=== PATIENT | female | born 1950 | race Caucasian/White ===

== ENCOUNTER 2019-08-07 09:38 | Emergency (ER) | payer MEDICARE ==
--- NOTE | 2019-08-07 10:15 | ER Document Report ---
ED Medical Screen (RME) - General Chief Complaint: Abdominal Pain Stated Complaint: ABDOMINAL PAIN Time Seen by Provider: 08/07/19 10:10 Mode of Arrival: Ambulatory Information source: Patient Notes: 69-year-old female presented to ED for complaint of nausea vomiting diarrhea and stomach pain. She states she does not feel good. She states she has a history of gallbladder problems diverticulosis and stomach pains chronic cystitis. She states that she has not felt very good in the last 3 days and due to the vomiting has not been taking to take her normal medicines because of the nausea vomiting and diarrhea. He states she does not smoke drink or use any drugs. She is alert oriented respirations regular and unlabored and speaking in full sentences. I have greeted and performed a rapid initial assessment of this patient. A comprehensive ED assessment and evaluation of the patient, analysis of test results and completion of medical decision making process will be conducted by an additional ED providers. Physical Exam - Vital signs Vitals: Temp Pulse Resp BP Pulse Ox 97.5 F 118 H 18 96/75 L 96 08/07/19 09:47 08/07/19 09:47 08/07/19 09:47 08/07/19 09:47 08/07/19 09:47 Course - Vital Signs Vital signs: Temp Pulse Resp BP Pulse Ox 97.5 F 118 H 18 96/75 L 96 08/07/19 09:47 08/07/19 09:47 08/07/19 09:47 08/07/19 09:47 08/07/19 09:47
[2019-08-07] MEDS ORDERED: NORMAL SALINE 1000 ML 1,000 ML IV ONE (10:17)
[2019-08-07] MEDS ORDERED: ONDANSETRON 4 MG TAB.RAPDIS PO ONE (10:17)
--- NOTE | 2019-08-07 10:42 | RADIOLOGY REPORT (SQ) ---
EXAM DESCRIPTION: CHEST SINGLE VIEW IMAGES COMPLETED DATE/TIME: 08/07/2019 10:34 am REASON FOR STUDY: #1 SYNCOPE COMPARISON: None. EXAM PARAMETERS: NUMBER OF VIEWS: One view. TECHNIQUE: Single frontal radiographic view of the chest acquired. RADIATION DOSE: NA LIMITATIONS: None. FINDINGS: LUNGS AND PLEURA: No opacities, masses or pneumothorax. No pleural effusion. MEDIASTINUM AND HILAR STRUCTURES: No masses. Contour normal. HEART AND VASCULAR STRUCTURES: Heart normal in size. Normal vasculature. BONES: No acute findings. HARDWARE: None in the chest. OTHER: No other significant finding. IMPRESSION: NO ACUTE RADIOGRAPHIC FINDING IN THE CHEST. TECHNICAL DOCUMENTATION: JOB ID: [id number] 2010 [employer]- All Rights Reserved Reading location - IP/workstation name: [email or web address]
[2019-08-07 11:36] LABS: ABSOLUTE EOSINOPHILS # (AUTO) 0.1 10^3/uL (0.0-0.6); ABSOLUTE LYMPHOCYTES (AUTO) 1.3 10^3/uL (0.5-4.7); ABSOLUTE MONOCYTES (AUTO) 0.9 10^3/uL (0.1-1.4); ABSOLUTE NEUT (AUTO) 6.4 10^3/uL (1.7-8.2); BASOPHILS % (AUTO) 0.5 % (0-2); EOSINOPHILS % (AUTO) 0.8 % (0-6); HEMATOCRIT 44.8 % (36.0-47.0); HEMOGLOBIN 15.3 g/dL (12.0-15.5); LYMPHOCYTES % (AUTO) 14.8 % (13-45); MEAN CORPUSCULAR HEMOGLOBIN 29.8 pg (27.0-33.4); MEAN CORPUSCULAR HGB CONC 34.1 g/dL (32.0-36.0); MEAN CORPUSCULAR VOLUME 87 fl (80-97); MONOCYTES % (AUTO) 10.4 % (3-13); PLATELET COUNT 289 10^3/uL (150-450); RED BLOOD COUNT 5.12 10^6/uL (3.72-5.28); RED CELL DISTRIBUTION WIDTH 14.1 % (11.5-14.0); SEGMENTED NEUTROPHILS % (AUTO) 73.5 % (42-78); TOTAL CELLS COUNTED % (AUTO) 100 %; WHITE BLOOD COUNT 8.7 10^3/uL (4.0-10.5)
[2019-08-07] MEDS ORDERED: RINGERS SOLUTION,LACTATED 1,000 ML IV ONE ×2 (11:39→12:56)
--- NOTE | 2019-08-07 11:51 | ER Document Report ---
ED General - General Chief Complaint: Abdominal Pain Stated Complaint: ABDOMINAL PAIN Time Seen by Provider: 08/07/19 10:10 Primary Care Provider: TY NGUYEN PA-C [Primary Care Provider] - Follow up as needed SHAUN WEBSTER MD [ACTIVE STAFF] - Follow up as needed Mode of Arrival: Ambulatory Notes: 69-year-old female presents emergency department complaining of 1 to 2-week history of decreased oral intake, right upper quadrant pain associated with nausea and vomiting that worsens when she eats sardine in oil. Patient states that this does not get any better when she tries Gas-X or Carline-[place]mit. Patient states that for the past week she has not been able to tolerate anything by m outh with exception of water. Yesterday she tried to eat a small amount of soup and threw back up. Patient states this morning she vomited when she just ate water. Complains of sweats but denies fevers. Admits to diarrhea and a small amount of blood in her stool, states there is only 1 or 2 drops and a small amount of blood when she wipes with toilet paper. Patient notes she has been told in the past that she has decreased functioning of her gallbladder by her physician in [place]. Patient also has a history of diverticulitis and chronic cystitis. Patient states she did have somewhat similar symptoms approximately 1 month ago that were treated by ciprofloxacin and a vaginal cream that her primary care physician called in over the phone and her symptoms did improve. - Related Data Allergies/Adverse Reactions: No Known Allergies Allergy (Verified 08/07/19 10:17) Past Medical History - General Information source: Patient - Social History Smoking Status: Former Smoker Frequency of alcohol use: None Drug Abuse: None Family History: Hypertension Patient has homicidal ideation: No Review of Systems - Review of Systems Constitutional: See HPI, Diaphoresis, Malaise, Weakness, Weight loss - 9 pounds over the past week.. denies: Chills, Fever EENT: No symptoms reported Cardiovascular: No symptoms reported Respiratory: No symptoms reported Gastrointestinal: See HPI, Abdominal pain, Diarrhea, Nausea, Vomiting, Rectal bleeding Genitourinary: No symptoms reported. denies: Burning, Dysuria, Discharge Musculoskeletal: Muscle pain - Some diffuse muscle aches. Skin: No symptoms reported Neurological/Psychological: No symptoms reported -: Yes All other systems reviewed and negative Physical Exam - Vital signs Vitals: Temp Pulse Resp BP Pulse Ox 97.5 F 118 H 18 96/75 L 96 08/07/19 09:47 08/07/19 09:47 08/07/19 09:47 08/07/19 09:47 08/07/19 09:47 Interpretation: Hypotensive, Tachycardic - Notes Notes: GENERAL: Alert, interacts well. No acute distress. HEAD: Normocephalic, atraumatic EYES: Pupils equal, round and reactive to light, extraocular movements intact. ENT: Oral mucosa moist, tongue midline. NECK: Full range of motion, supple, trachea midline. LUNGS: Clear to auscultation bilaterally, no wheezes, rales or rhonchi, no respiratory distress. HEART: Tachycardic rate and regular rhythm, no murmurs, gallops, rubs. ABDOMEN: Soft, mild right upper quadrant, right lower quadrant and left lower quadrant tenderness to palpation without any guarding, rigidity or rebounding, nondistended, bowel sounds present in all 4 quadrants. EXTREMITIES: Moves all 4 extremities spontaneously, no edema, radial and dorsalis pedis pulses 2/4 bilaterally. No cyanosis. NEUROLOGICAL: Alert and oriented x3, normal speech. PSYCH: Normal mood, normal affect. SKIN: Warm, Dry, normal turgor, no rashes or lesions noted. Course - Re-evaluation Re-evalutation: 08/07/19 15:53 CBC unremarkable, CMP shows slight low sodium 136.2, CO2 low at 13, BUN of 41 and creatinine 1.87 also support dehydration, glucose elevated at 141, troponin negative, lipase normal, total and direct bilirubin normal as are liver function tests, ultrasound of the gallbladder shows biliary sludge without signs of infection, CAT scan of the abdomen pelvis also does not show any diverticulitis or signs of infection. Chest x-ray unremarkable. Discussed patient with Dr. Webster who states that as long as the patient's symptoms can be controlled with antiemetics and she is able to tolerate nonfatty foods patient can follow-up as an outpatient for possible outpatient cholecystectomy for symptomatic biliary colic from biliary sludge. Patient is agreeable to this plan as well. 08/07/19 15:57 Urinalysis shows elevated specific gravity, ketones, moderate blood and large leukocyte esterase, only 13 RBCs. Unlikely to be an infected obstructing stone, also stone was not seen on CT scan. This will be sent for culture. Patient w ill be treated with Keflex. Discharged home. 08/07/19 16:50 Tolerated ice chips and crackers well. Discharged home. - Vital Signs Vital signs: Temp Pulse Resp BP Pulse Ox 97.5 F 118 H 20 106/72 93 08/07/19 10:10 08/07/19 09:47 08/07/19 15:00 08/07/19 14:47 08/07/19 15:00 - Laboratory Result Diagrams: 08/07/19 11:15 08/07/19 11:15 Laboratory results interpreted by me: 08/07/19 08/07/19 08/07/19 11:15 11:15 14:30 RDW 14.1 H Sodium 136.2 L Carbon Dioxide 13 L BUN 41 H Creatinine 1.87 H Est GFR ( Amer) 32 L Est GFR (MDRD) Non-Af 27 L Glucose 141 H Urine Protein 30 H Urine Ketones TRACE H Urine Blood MODERATE H Ur Leukocyte Esterase LARGE H Discharge - Discharge Clinical Impression: Biliary colic, Biliary sludge, Nausea vomiting and diarrhea Urinary tract infection Qualifiers: Urinary tract infection type: acute cystitis Hematuria presence: with hematuria Qualified Code(s): N30.01 - Acute cystitis with hematuria Condition: Stable Disposition: HOME, SELF-CARE Additional Instructions: Please avoid fatty and greasy foods, this will make your gallbladder pain worse. Follow a low-fat diet. If despite following a low-fat diet you continue to have nausea and vomiting anytime you eat or pain in your abdomen anytime you eat please consider following up with a surgeon as an outpatient to discuss possibly having your gallbladder removed because of the biliary sludge. I have prescribed Zofran ODT 4 mg to help with nausea and vomiting. You may take 1 tablet every 4 hours as needed for nausea and vomiting. Should you have persistent constant vomiting and you cannot keep down any food or water please return to the emergency department. Please take the Keflex as directed until it is gone for your urinary tract infection. Prescriptions: Cephalexin Monohydrate [Keflex 250 mg Capsule] 250 mg PO BID #10 capsule Ondansetron [Zofran Odt 4 mg Tablet] 1 tab PO Q4H PRN #15 tab.rapdis PRN Reason: For Nausea/Vomiting Referrals: TY NGUYEN PA-C [Primary Care Provider] - Follow up as needed SHAUN WEBSTER MD [ACTIVE STAFF] - Follow up as needed
[2019-08-07 11:54] LABS: ALBUMIN 3.9 g/dL (3.5-5.0); ALKALINE PHOSPHATASE 101 U/L (38-126); ANION GAP 19 (5-19); ASPARTATE AMINO TRANSFERASE 35 U/L (14-36); BILIRUBIN,DIRECT 0.1 mg/dL (0.0-0.4); BILIRUBIN,TOTAL 0.5 mg/dL (0.2-1.3); BLOOD UREA NITROGEN 41 mg/dL (7-20); CALCIUM 9.7 mg/dL (8.4-10.2); CARBON DIOXIDE 13 mmol/L (22-30); CHLORIDE 104 mmol/L (98-107); GLUCOSE 141 mg/dL (75-110); POTASSIUM 3.9 mmol/L (3.6-5.0); TOTAL PROTEIN 7.4 g/dL (6.3-8.2)
--- NOTE | 2019-08-07 12:52 | RADIOLOGY REPORT (SQ) ---
EXAM DESCRIPTION: U/S ABDOMEN LIMITED W/O DOP IMAGES COMPLETED DATE/TIME: 08/07/2019 12:36 pm REASON FOR STUDY: RUQ pain, N/V/D, h/o GB disease COMPARISON: None. TECHNIQUE: Dynamic and static grayscale images acquired of the abdomen and recorded on PACS. Additio nal selected color Doppler and spectral images recorded. LIMITATIONS: None. FINDINGS: PANCREAS: No masses. No peripancreatic edema or fluid collections. LIVER: Echotexture is coarse with increased echogenicity consistent with fatty infiltration. LIVER VASCULATURE: Normal directional flow of the main portal vein and hepatic veins. GALLBLADDER: Sludge present. No stones. Normal wall thickness. No pericholecystic fluid. ULTRASOUND-DETECTED BLEDSOE'S SIGN: Negative. INTRAHEPATIC DUCTS AND COMMON DUCT: CBD and intrahepatic ducts normal caliber. No filling defects. INFERIOR VENA CAVA: Normal flow. AORTA: No aneurysm. RIGHT KIDNEY: Normal size. Normal echogenicity. No solid or suspicious masses. No hydronephros is. No calcifications. PERITONEAL AND RIGHT PLEURAL SPACE: No ascites or effusions. OTHER: No other significant finding. IMPRESSION: SLUDGE IN THE GALLBLADDER. FATTY INFILTRATION OF THE LIVER. NO OTHER SIGNIFICANT FINDI NGS. TECHNICAL DOCUMENTATION: JOB ID: [id number] 2010 [employer]- All Rights Reserved Reading location - IP/workstation name: [email or web address]
--- NOTE | 2019-08-07 14:35 | RADIOLOGY REPORT (SQ) ---
EXAM DESCRIPTION: CT ABD/PELVIS WITH IV ONLY IMAGES COMPLETED DATE/TIME: 08/07/2019 2:16 pm REASON FOR STUDY: RLQ and LLQ pain, h/o diverticulitis, N/V/D COMPARISON: None. TECHNIQUE: CT scan of the abdomen and pelvis performed using helical scanning technique with dynamic intravenous contrast injection. No oral contrast. Images reviewed with lung, soft tissue, and bone windows. Reconstructed coronal and sagittal MPR images reviewed. Delayed images for evaluation of the urinary system also acquired. All images stored on PACS. All CT scanners at this facility use dose modulation, iterative reconstruction, and/or weight based d osing when appropriate to reduce radiation dose to as low as reasonably achievable (ALARA). [facility]: Dose Right [facility]: CareDose [facility]: Dose Right [facility]: Teradose 4D [facility]: Starline CONTRAST TYPE AND DOSE: contrast/concentration: Isovue 300.00 mg/ml; Total Contrast Delivered: 64.4 ml; Total Saline Delivered: 15.0 ml RENAL FUNCTION: BUN 41 creatinine 1.87 ordering physician assured that the patient would be given ad equate hydration RADIATION DOSE: CT Rad equipment meets quality standard of care and radiation dose reduction techniq ues were employed. CTDIvol: 6.8 - 9.4 mGy. DLP: 1135 mGy-cm.. LIMITATIONS: None. FINDINGS: LOWER CHEST: No significant findings. No nodules or infiltrates. LIVER: Normal size. No masses. No dilated ducts. SPLEEN: Normal size. No focal lesions. PANCREAS: No masses. No significant calcifications. No adjacent inflammation or peripancreatic fluid collections. Pancreatic duct not dilated. GALLBLADDER: No identified stones by CT criteria. No inflammatory changes to suggest cholecystitis. ADRENAL GLANDS: No significant masses or asymmetry. RIGHT KIDNEY AND URETER: No solid masses. No significant calcifications. No hydronephrosis or hyd roureter. LEFT KIDNEY AND URETER: No solid masses. No significant calcifications. Mild hydronephrosis. No significant ureteral dilatation. No obstructing calculus. AORTA AND VESSELS: No aneurysm. No dissection. Renal arteries, SMA, celiac without stenosis. RETROPERITONEUM: No retroperitoneal adenopathy, hemorrhage or masses. BOWEL AND PERITONEAL CAVITY: Minimal sigmoid diverticulosis. No associated inflammation. APPENDIX: Not identified. PELVIS: No mass. No free fluid. Normal bladder. ABDOMINAL WALL: No masses. No hernias. BONES: No significant or acute findings. OTHER: No other significant finding. IMPRESSION: Mild left hydronephrosis with no obvious source of obstruction. Possible chronic UPJ na rrowing. Minimal sigmoid diverticulosis with no associated inflammation. No other significant findi ngs in the abdomen or pelvis. TECHNICAL DOCUMENTATION: JOB ID: [id number] Quality ID # [id number]: Final reports with documentation of one or more dose reduction techniques (e.g., Au tomated exposure control, adjustment of the mA and/or kV according to patient size, use of iterative reconstruction technique) 2010 [employer]- All Rights Reserved Reading location - IP/workstation name: [email or web address]
[2019-08-07 15:45] VITALS: BP 106/72
[2019-08-07 15:50] LABS: APPEARANCE,URINE CLOUDY; BILIRUBIN,URINE NEGATIVE (NEGATIVE); COLOR,URINE YELLOW; GLUCOSE, URINE NEGATIVE (NEGATIVE); KETONES,URINE TRACE mg/dL (NEGATIVE); LEUKOCYTE ESTERASE,URINE LARGE (NEGATIVE); NITRITE,URINE NEGATIVE (NEGATIVE); PROTEIN,URINE 30 mg/dL (NEGATIVE); URINE SPECIFIC GRAVITY 1.044; UROBILINOGEN,URINE NEGATIVE mg/dL (<2.0)
[2019-08-07] MEDS ORDERED: ONDANSETRON HCL INJ/PF 4 MG/2 ML SDV IV ONE (15:56)
[2019-08-07] MEDS ORDERED: CEPHALEXIN 500 MG CAPSULE PO ONE (16:47)
== END 2019-08-07 16:10 | disposition home or self-care (01) ==
LOC: ER 09:38
DX: K80.50 Calculus of bile duct without cholangitis or cholecystitis without obstruction (principal); N30.01 Acute cystitis with hematuria; K82.8 Other specified diseases of gallbladder; R10.12 Left upper quadrant pain; R11.2 Nausea with vomiting, unspecified; R19.7 Diarrhea, unspecified; R61 Generalized hyperhidrosis; R53.81 Other malaise; R53.1 Weakness; R63.4 Abnormal weight loss; K62.5 Hemorrhage of anus and rectum; M79.10 Myalgia, unspecified site; R00.0 Tachycardia, unspecified; R10.811 Right upper quadrant abdominal tenderness; R10.813 Right lower quadrant abdominal tenderness; R10.814 Left lower quadrant abdominal tenderness; Z87.19 Personal history of other diseases of the digestive system; Z87.891 Personal history of nicotine dependence
CPT/HCPCS: 99284; 96361; 96374; 36415; 87086; 83690; 85025; 87088; 80053; 81001; 84484; 87186; 71045; 76705; 74177; A9270 ×2; J2405; J7120; S0119

== ENCOUNTER 2019-09-10 12:53 | Emergency (ER) | payer MEDICARE ==
--- NOTE | 2019-09-10 14:03 | ER Document Report ---
ED Medical Screen (RME) - General Chief Complaint: Abdominal Pain Stated Complaint: LOWER BACK/ABDOMINAL PAIN/PAINFUL URINATION Time Seen by Provider: 09/10/19 13:57 Primary Care Provider: TY NGUYEN PA-C [Primary Care Provider] - Follow up as needed Mode of Arrival: Ambulatory Information source: Patient Notes: Patient presents complaining of urinary frequency, low back pain and lower abdominal pain for the past week. Patient denies any nausea vomiting or diarrhea. Patient denies any fever. Patient does have a history of IBS, cystitis and diverticulitis. I have greeted and performed a rapid initial assessment of this patient. A comprehensive ED assessment and evaluation of the patient, analysis of test results and completion of the medical decision making process will be conducted by additional ED providers. - Related Data Allergies/Adverse Reactions: No Known Allergies Allergy (Verified 09/10/19 13:57) Past Medical History - Social History Chew tobacco use (# tins/day): No Frequency of alcohol use: None Drug Abuse: None Physical Exam - Vital signs Vitals: Temp Pulse Resp BP Pulse Ox 97.8 F 94 16 147/74 H 97 09/10/19 13:12 09/10/19 13:12 09/10/19 13:12 09/10/19 13:12 09/10/19 13:12 - Abdominal Tenderness: Tender - Lower pelvic tenderness - Back Back: Tender - Lower lumbar tenderness. No: CVA tenderness Course - Vital Signs Vital signs: Temp Pulse Resp BP Pulse Ox 97.8 F 94 16 147/74 H 97 09/10/19 13:12 09/10/19 13:12 09/10/19 13:12 09/10/19 13:12 09/10/19 13:12 Doctor's Discharge - Discharge Referrals: TY NGUYEN PA-C [Primary Care Provider] - Follow up as needed
[2019-09-10 14:32] LABS: APPEARANCE,URINE CLOUDY; BILIRUBIN,URINE NEGATIVE (NEGATIVE); COLOR,URINE YELLOW; GLUCOSE, URINE NEGATIVE (NEGATIVE); KETONES,URINE NEGATIVE (NEGATIVE); LEUKOCYTE ESTERASE,URINE LARGE (NEGATIVE); NITRITE,URINE NEGATIVE (NEGATIVE); PROTEIN,URINE 30 mg/dL (NEGATIVE); URINE SPECIFIC GRAVITY 1.018; UROBILINOGEN,URINE NEGATIVE mg/dL (<2.0)
[2019-09-10 14:33] LABS: ABSOLUTE BASOPHILS # (AUTO) 0.1 10^3/uL (0.0-0.2); ABSOLUTE EOSINOPHILS # (AUTO) 0.3 10^3/uL (0.0-0.6); ABSOLUTE LYMPHOCYTES (AUTO) 1.7 10^3/uL (0.5-4.7); ABSOLUTE MONOCYTES (AUTO) 0.5 10^3/uL (0.1-1.4); ABSOLUTE NEUT (AUTO) 5.3 10^3/uL (1.7-8.2); BASOPHILS % (AUTO) 0.7 % (0-2); EOSINOPHILS % (AUTO) 3.5 % (0-6); HEMATOCRIT 40.2 % (36.0-47.0); HEMOGLOBIN 13.5 g/dL (12.0-15.5); LYMPHOCYTES % (AUTO) 22.2 % (13-45); MEAN CORPUSCULAR HEMOGLOBIN 30.3 pg (27.0-33.4); MEAN CORPUSCULAR HGB CONC 33.5 g/dL (32.0-36.0); MEAN CORPUSCULAR VOLUME 90 fl (80-97); MONOCYTES % (AUTO) 6.4 % (3-13); PLATELET COUNT 201 10^3/uL (150-450); RED BLOOD COUNT 4.45 10^6/uL (3.72-5.28); RED CELL DISTRIBUTION WIDTH 14.5 % (11.5-14.0); SEGMENTED NEUTROPHILS % (AUTO) 67.2 % (42-78); TOTAL CELLS COUNTED % (AUTO) 100 %; WHITE BLOOD COUNT 7.8 10^3/uL (4.0-10.5)
[2019-09-10 14:47] LABS: ALBUMIN 4.2 g/dL (3.5-5.0); ALKALINE PHOSPHATASE 78 U/L (38-126); ANION GAP 6 (5-19); ASPARTATE AMINO TRANSFERASE 23 U/L (14-36); BILIRUBIN,TOTAL 0.4 mg/dL (0.2-1.3); BLOOD UREA NITROGEN 33 mg/dL (7-20); CALCIUM 9.5 mg/dL (8.4-10.2); CARBON DIOXIDE 24 mmol/L (22-30); CHLORIDE 109 mmol/L (98-107); GLUCOSE 110 mg/dL (75-110); POTASSIUM 4.2 mmol/L (3.6-5.0); TOTAL PROTEIN 7.1 g/dL (6.3-8.2)
[2019-09-10] MEDS ORDERED: CEFTRIAXONE 1 GM/D5W RTU 1 GM/50 ML RTUPB IV ONE (15:29)
[2019-09-10] MEDS ORDERED: PHENAZOPYRIDINE HCL 200 MG TABLET PO ONE (17:51)
--- NOTE | 2019-09-10 17:53 | ER Document Report ---
ED GI/ - General Chief Complaint: Abdominal Pain Stated Complaint: LOWER BACK/ABDOMINAL PAIN/PAINFUL URINATION Time Seen by Provider: 09/10/19 13:57 Primary Care Provider: TY NGUYEN PA-C [Primary Care Provider] - Follow up as needed Mode of Arrival: Ambulatory Notes: CHIEF COMPLAINT: Frequency of urination for 1 week HPI: 69-year-old female with history of chronic cystitis presenting for increased frequency of urination over the last week with some discomfort over the suprapubic region. Patient states this is typical of her UTIs. Does not feel like it is the same pain she gets with diverticulitis. Has not had a fever nausea vomiting. Patient denies back pain. Patient denies other complaints at this time ROS: See HPI - all other systems were reviewed and are otherwise negative Constitutional: no fever Eyes: no drainage, no blurred vision ENT: no runny nose, no sore throat Cardiovascular: no chest pain Resp: no SOB, no cough GI: no vomiting, no diarrhea, + abdominal pain : + dysuria, positive frequency Integumentary: no rash Allergy: no hives Musculoskeletal: no extremity pain or swelling Neurological: no incontinence of urine MEDICATIONS: I agree with the patient medications as charted by the RN. ALLERGIES: I agree with the allergies as charted by the RN. PAST MEDICAL HISTORY/PAST SURGICAL HISTORY: Reviewed and agree as charted by RN. SOCIAL HISTORY: Reviewed and agree as charted by RN. FAMILY HISTORY: No significant familial comorbid conditions directly related to patient complaint EXAM: Reviewed vital signs as charted by RN. CONSTITUTIONAL: Alert and oriented and responds appropriately to questions. Well-appearing; well-nourished HEAD: Normocephalic; atraumatic EYES: PERRL; Conjunctivae clear, sclerae non-icteric ENT: normal nose; no rhinorrhea; moist mucous membranes NECK: Supple without meningismus CARD: Capillary refill less than 3 seconds; symmetric distal pulses RESP: Normal chest excursion without splinting or tachypnea; breath sounds clear and equal bilaterally ABD/GI: Normal bowel sounds; non-distended; soft, mild tenderness over the suprapubic region on palpation, no rebound, no guarding; no palpable organomegaly or masses. BACK: The back appears normal and is non-tender to palpation, there is no CVA tenderness EXT: Normal ROM in all joints; non-tender to palpation; no cyanosis, no effusions, no edema SKIN: Normal color for age and race; warm; dry; good turgor; no acute lesions noted NEURO: Moves all extremities equally; Motor and sensory function intact PSYCH: The patient's mood and manner are appropriate. Grooming and personal hygiene are appropriate. MDM: 69-year-old female with history of chronic cystitis presenting for 1 week of urinary frequency with some suprapubic discomfort states similar to prior episodes of UTI with her cystitis. Does not feel like her diverticulitis. Initial lab work shows a UTI does not show significant leukocytosis. Will treat for UTI culture urine, patient given precautions about worsening symptoms, although her symptoms are typical per the patient of her cystitis she is aware that we cannot completely rule out diverticulitis without imaging. - Related Data Allergies/Adverse Reactions: No Known Allergies Allergy (Verified 09/10/19 13:57) Past Medical History - General Information source: Patient - Social History Smoking Status: Never Smoker Chew tobacco use (# tins/day): No Frequency of alcohol use: None Drug Abuse: None Family History: Hypertension Musculoskeletal Medical History: Reports Hx Arthritis Past Surgical History: Reports: Hx Genitourinary Surgery, Hx Orthopedic Surgery - back surgery Physical Exam - Vital signs Vitals: Temp Pulse Resp BP Pulse Ox 97.8 F 94 16 147/74 H 97 09/10/19 13:12 09/10/19 13:12 09/10/19 13:12 09/10/19 13:12 09/10/19 13:12 Course - Vital Signs Vital signs: Temp Pulse Resp BP Pulse Ox 97.8 F 94 16 147/74 H 97 09/10/19 13:12 09/10/19 13:12 09/10/19 13:12 09/10/19 13:12 09/10/19 13:12 - Laboratory Result Diagrams: 09/10/19 14:15 09/10/19 14:15 Laboratory results interpreted by me: 09/10/19 09/10/19 09/10/19 14:15 14:15 14:15 RDW 14.5 H Chloride 109 H BUN 33 H Est GFR (MDRD) Non-Af 57 L Urine Protein 30 H Urine Blood LARGE H Ur Leukocyte Esterase LARGE H Discharge - Discharge Clinical Impression: Acute cystitis Qualifiers: Hematuria presence: without hematuria Qualified Code(s): N30.00 - Acute cystitis without hematuria Condition: Stable Disposition: HOME, SELF-CARE Additional Instructions: Take the antibiotics as prescribed. Take the Pyridium to help with the urinary frequency and discomfort. Follow-up with your primary care provider in 2 days for reevaluation of symptoms. If you have onset of fever or you have any worsening pain return to the emergency department for reevaluation as discussed Prescriptions: Sulfamethoxazole/Trimethoprim [Bactrim Ds Tablet] 1 each PO BID #14 tablet Phenazopyridine HCl [Pyridium 100 Mg Tablet] 100 mg PO TID #9 tablet Referrals: TY NGUYEN PA-C [Primary Care Provider] - Follow up as needed
[2019-09-10 18:14] VITALS: BP 147/87
== END 2019-09-10 18:14 | disposition home or self-care (01) ==
LOC: ER 12:53
DX: N30.00 Acute cystitis without hematuria (principal); R10.9 Unspecified abdominal pain; R30.0 Dysuria; M54.5 Low back pain; R35.0 Frequency of micturition; R10.30 Lower abdominal pain, unspecified
CPT/HCPCS: 99284; 96365; 36415; 87086; 83690; 85025; 87088; 80053; 81001; A9270; J0696; 87186; J3490